=== PATIENT | male | born 1990 | race Caucasian/White ===

== ENCOUNTER 2025-05-19 16:38 | Emergency (ER) | payer OTHER, SELFPAY ==
[2025-05-19 16:46] VITALS: BP 140/93
--- NOTE | 2025-05-19 18:40 | ED.SKININJ ---
HPI-Injury
General
Chief Complaint: Bite
Time Seen by Provider: 05/19/25 18:40
History of Present Illness-Injury
Initial Injury comments:
FOCUSED PAST MEDICAL HISTORY
- No significant past medical
REVIEW OF OLD RECORDS
- The patient has had several ED visits in the past but no admissions
Note:
CHIEF COMPLAINT(S)
Dog bite
HISTORY OF PRESENT ILLNESS
The patient is a 34-year-old male who presented with a dog bite. The bite was inflicted by a domesticated hunting dog that is trained and vaccinated, including up-to-date rabies shots. However, the dog regularly plays with and kills raccoons. The
patient expressed uncertainty about needing rabies shots, noting it is rare in domesticated, vaccinated dogs in the [place]. The wound has not been washed out; the patient reported squeezing it to control bleeding and subsequently wrapping it.
The patient expressed concern about the potential for infection and cosmetic outcomes. It was discussed that the wound could be washed with soap and water and potentially closed with a single stitch to improve cosmetics while minimizing infection
risk. The plan considered the use of prophylactic antibiotics due to the risk of bacterial infection. The provider also planned to consult with infectious disease specialists regarding rabies prophylaxis.
PHYSICAL EXAM
General: Alert, no acute distress.
Skin: Warm, dry, dog bite wound present.
Head: Normocephalic, atraumatic.
Neck: Supple, trachea midline.
Eye, Ears, Nose, Mouth, and Throat: Oral mucosa moist.
Cardiovascular: Normal peripheral perfusion, no edema.
Respiratory: Respirations are non-labored.
Gastrointestinal: Abdomen nondistended.
Back: Normal range of motion, normal alignment.
Musculoskeletal: There is a 1.5 cm curvilinear laceration at the right wrist with no significant bleeding but does go down to the muscle layer
Neurological: Alert and oriented to person, place, time, and situation, no focal neurological deficit observed.
Psychiatric: Cooperative, appropriate mood & affect.
PLAN
- Clean the wound with soap and water.
- Initiate a course of antibiotics to prevent bacterial infection.
- Consider closure of the wound with a stitch, ensuring an appropriate assessment of the risk of infection.
- Consult with infectious disease for additional recommendations, particularly regarding rabies prophylaxis.
DIFFERENTIAL DIAGNOSIS
The Differential Diagnosis includes, in no particular order and is not limited to:
1. Bacterial skin infection
2. Rabies exposure
3. Tetanus infection
4. Pasteurella infection
5. Capnocytophaga infection
6. Streptococcal infection
7. Staphylococcal infection
8. Cellulitis
9. Abscess formation
10. Wound dehiscence
SUMMARY OF ENCOUNTER
The patient, a 34-year-old male, was seen in the emergency department for a dog bite inflicted by a domesticated and vaccinated hunting dog. After discussion, essential management included cleaning the wound with soap and water, considering cosmetic
closure with a stitch, and initiating a course of prophylactic antibiotics due to the risk of bacterial infection. Concerns about rabies exposure were addressed given the dogs vaccination status and history of contact with raccoons. Consultation
with an infectious disease specialist ensued.
MANAGEMENT OF THE PATIENTS CARE WAS DISCUSSED WITH
Consulted with Dr. Toledo, an infectious disease specialist, regarding rabies prophylaxis. Dr. Toledo recommended against the rabies vaccination.
PLAN
- Clean the wound with soap and water.
- Administer prophylactic antibiotics to prevent bacterial infection as prescribed.
- Consider wound closure with a stitch if deemed appropriate for cosmetic reasons and minimal infection risk.
- Refrain from rabies vaccination based on infectious disease consultation and patients agreement.
PATIENT EDUCATION AND COUNSELING
Counseled patient on the low risk of rabies given the vaccination status of the dog and consultation feedback. Advised on wound care and signs of infection to monitor.
MEDICATION RECONCILIATION
Prescribed penicillin (noted as plenomycin in social welfare administrator), for animal bite prophylaxis against bacterial infection.
MEDICAL DECISION MAKING
-Number and Complexity of Problems Addressed: DDx includes bacterial skin infection, rabies exposure, tetanus infection, Pasteurella infection, Capnocytophaga infection, streptococcal infection, staphylococcal infection, cellulitis, abscess
formation, and wound dehiscence.
-Data:
Category 3
Discussion of management with Dr. Toledo, an infectious disease specialist.
DIAGNOSIS
Dog bite, initial encounter (ICD-10 Code: W54.0XXA)
Prophylactic treatment for bacterial infection due to animal bite (no direct ICD-10 code)
Past History
Past History
ED Past Medical History: None
ED Past Surgical History: None
Social History
Tobacco: Non-smoker
Alcohol: None
Drug: None
Personal: Single
Living: with family
Phy Exam
Physical Exam
Physical Exam:
See HPI
Course
Orders/Labs/Results
Orders:
Orders
05/19/25 19:07
Clindamycin HCl [Cleocin] 300 mg PO NOW STA
Vital Signs
Initial and Last Documented VS:
Initial Vital Signs
Temp Pulse Resp BP Pulse Ox
36.6 C 100 16 140/93 98
05/19/25 16:46 05/19/25 16:46 05/19/25 16:46 05/19/25 16:46 05/19/25 16:46
Last Documented Vital Signs
Temp Pulse Resp BP Pulse Ox
36.6 C 100 16 140/93 98
05/19/25 16:46 05/19/25 16:46 05/19/25 16:46 05/19/25 16:46 05/19/25 18:42
Procedures
Laceration Closure
Right Distal Wrist:
Size of Wound in cm: 1.5
Description of Wound Edges: sharp
Preparation: cleaned with soap & water
Skin Closure Material: 4-0 nylon
Number of sutures: 1
*Pulse Oximetry
SaO2: 98
Oxygen Mode of Delivery: Room air
Patient hypoxic: no
*Critical Care Note
Total Time (30-74mins, 75-104mins- exclusive of procedures): Not Applicable
ED Attending Note
-
Portions of this chart may have been created with voice recognition software.� Occasional wrong word or��sound alike� substitutions may have occurred due to the inherent limitations of voice recognition software.
Discharge Plan
Departure
Patient Disposition: Home (Routine Discharge)
Date of Disposition: 05/19/25
Time of Disposition: 19:08
Patient with high blood pressure during this ER visit?: Yes
Discharge Problem:
Dog bite
Instructions: Animal Bites (DC)
Prescriptions:
New
clindamycin HCl [Cleocin HCl] 300 mg capsule
300 mg PO TID Qty: 9 0RF
No Action
oxycodone-acetaminophen 5 MG/325 MG tablet
1 tab PO Q4HPRN PRN (Reason: pain) Qty: 12 0RF
ibuprofen 800 mg tablet
800 mg PO QIDPRN PRN (Reason: pain, fever) Qty: 30 0RF
oxycodone-acetaminophen [Percocet] 5-325 mg Tablet
1 tab PO Q6HPRN PRN (Reason: pain) Qty: 8 0RF
Activity Restrictions/Additional Instructions:
I discussed your case with Dr. Islas, the infectious disease doctor, who recommends against rabies shots for you. I do however recommend that we place you on clindamycin to help prevent a bacterial infection related to the dog bite. I placed 1
stitch that should be removed by your doctor in approximately 7 to 10 days. Return if worse or concerns.
Interventions
Interventions:
*Risk Screen - Suicide Last Done: 05/19/25 16:46
*General Assessment Last Done: 05/19/25 19:27
*Neglect/Abuse Screening Last Done: 05/19/25 16:46
*ED COVID-19 Vaccine History Last Done: 05/19/25 19:27
*ED Influenza Vaccine History Last Done: 05/19/25 19:27
*Nursing Disposition Last Done: 05/19/25 19:27
ED-Skin Assessment Last Done: 05/19/25 18:24
Discharge Date and Time
Print Language: ETHIOPIAN
[2025-05-19] MEDS: CLEOCIN 300 MG PO (19:14)
== END 2025-05-19 19:29 | disposition home or self-care (01) ==
LOC: EMR 16:38
PROVIDERS: EMERGENCY PHYSICIAN Emergency Medicine
DX: S61.551A Open bite of right wrist, initial encounter (principal); W54.0XXA Bitten by dog, initial encounter; R03.0 Elevated blood-pressure reading, without diagnosis of hypertension
CPT/HCPCS: 99283; 12001